=== PATIENT | male | born 1960 | race Caucasian/White ===

== ENCOUNTER → 2016-11-10 | Outpatient (CLI) | payer MEDICARE | END | disposition home or self-care (01) | LOC: CVU 14:23 | PROVIDERS: ATTEND Family Medicine | DX: I51.7 Cardiomegaly (principal); R05 Cough | CPT/HCPCS: 71020; 93306 ==

== ENCOUNTER 2018-08-18 14:50 | Emergency (ER) | payer MEDICARE ==
[~2018-08-18] VITALS: Ht 195.6 cm; Wt 200.0 kg
--- NOTE | 2018-08-18 15:14 | NUR ---
Pt to room from lobby, pt c/o cough and intermittent L CP x1 week, worse with lying flat and exertion. Pt also states syncopal episode last Monday after drinking ETOH. Pt also c/o increased swelling in bilat LEs, unrelieved by "water pill" he usually takes. Pt states no pain currently. Pt placed in gown, positioned for comfort in bed. Continuous heart, oxygen and BP monitors applied, all safety measures observed. Pat CLIFTON at bedside to evaluate pt.
[2018-08-18] MEDS ORDERED: LOSA100T14 PO (15:18)
[2018-08-18] MEDS ORDERED: AMLO10TA8 PO (15:18)
--- NOTE | 2018-08-18 15:34 | NUR ---
PATIENT ON 2L VIA NASAL CANULA FOR SPO2 89-93% ON ROOM AIR. PIV STARTED AND BLOOD DRAWN.
--- NOTE | 2018-08-18 15:35 | NUR ---
DR. VALENCIA AT BEDSIDE.
[2018-08-18] MEDS ORDERED: FURO-93 PO (15:38)
[2018-08-18 15:45] LABS: BASOPHILS # (AUTO) 0.04 x10^3/uL (0-0.1); BASOPHILS % (AUTO) 1 % (0-1); EOSINOPHILS # (AUTO) 0.14 x10^3/uL (0-0.4); EOSINOPHILS % (AUTO) 2 % (1-7); LYMPHOCYTES # (AUTO) 1.37 x10^3/uL (1-3.4); LYMPHOCYTES % (AUTO) 16 % (22-44); MD NO; MEAN CORPUSCULAR HEMOGLOBIN 29.9 pg (27.5-34.5); MEAN CORPUSCULAR HGB CONC 32.6 g/dL (33.2-36.2); MEAN CORPUSCULAR VOLUME 91.7 fL (81-97); MEAN PLATELET VOLUME 7.4 fL (7.4-10.4); MONOCYTES # (AUTO) 0.51 x10^3/uL (0.2-0.8); MONOCYTES % (AUTO) 6 % (2-9); NEUTROPHILS # (AUTO) 6.56 x10^3/uL (1.8-6.8); NEUTROPHILS % (AUTO) 76 % (42-75); PLATELET COUNT 221 x10^3/uL (130-400); RED BLOOD COUNT 5.01 x10^6/uL (4.38-5.82); RED CELL DISTRIBUTION WIDTH 13.7 % (9.4-14.8)
[2018-08-18 15:57] LABS: ALANINE AMINOTRANSFERASE 52 U/L (12-78); ALBUMIN 3.3 g/dL (3.4-5.0); ANION GAP 6 mmol/L (5-15); CALCIUM 8.6 mg/dL (8.5-10.1); CHLORIDE 110 mmol/L (98-107)
[2018-08-18 16:01] LABS: ALKALINE PHOSPHATASE 76 U/L (45-117); BILIRUBIN,TOTAL 0.3 mg/dL (0.2-1.0); TOTAL PROTEIN 7.4 g/dL (6.4-8.2); TROPONIN I < 0.015 ng/mL (0.000-0.045)
--- NOTE | 2018-08-18 16:49 | NUR ---
PT TO CT AT THIS TIME.
[2018-08-18] MEDS ORDERED: OMNIPAQUE 350 MG/ML, 150 ML BOTTLE ONE (17:07)
[2018-08-18 17:41] VITALS: BP 154/86
[2018-08-18] MEDS ORDERED: BENZONATATE 100 MG CAPSULE ONE ×2 (18:32)
--- NOTE | 2018-08-18 18:49 | NUR ---
Patient/Caregiver given discharge instructions and they have confirmed that they understand the instructions. Patient ambulatory with steady transfers with cane.
[2018-08-18] MEDS ORDERED: BENZONATATE 100 MG CAPSULE PO ONE (19:00)
== END 2018-08-18 18:50 | disposition home or self-care (01) ==
LOC: ED 18:11
DX: R60.0 Localized edema (principal); R07.2 Precordial pain; R06.00 Dyspnea, unspecified; R07.89 Other chest pain
CPT/HCPCS: 36415; 71045; 71275; 80053; 83880; 84484; 85025; 93005; 99284; Q9967